=== PATIENT | male | born 1955 | race African-American/Black ===

== ENCOUNTER 2018-09-27 00:44 | Emergency (ER) | payer SELFPAY ==
[2018-09-27 01:11] LABS: Bilirubin Small (Negative); Blood, Urine Small (Negative); Clarity CLOUDY (Clear); Glucose, Urine (Dipstick) Negative (Negative); Leukocyte Trace (Negative); Nitrite Negative (Negative); Protein, Urine (Dipstick) 100 mg/dL (Neg-Trace); Specific Gravity, Urine 1.019 (1.002-1.036)
[2018-09-27 01:12] LABS: Bacteria/HPF None Seen HPF (None Seen); WBC/HPF 21-50 HPF (0-3)
[2018-09-27 01:13] LABS: Pathc Cast-AUWi Flag 5.81 (0-2.49)
[2018-09-27 01:23] LABS: Other Casts/LPF 0-3 FINELY GRAN LPF (0-3 Hyaline); Renal Epithelial None Seen HPF (0-3); Transitional Epithelial NONE SEEN HPF (0-3); Yeast-All Forms None Seen HPF (None Seen)
[2018-09-27 01:26] LABS: Medtox Reader # READER 1; Phencyclidine (PCP) Detected (NotDetected); THC/Cannabinoid Screen Detected (NotDetected)
[2018-09-27 01:27] LABS: Amphetamine Not Detected (NotDetected); Barbiturates Screen Not Detected (NotDetected); Benzodiazepine Screen Not Detected (NotDetected); Cocaine Metabolite Screen Detected (NotDetected); Medtox Control Line Valid? VALID (VALID); Methadone Not Detected (NotDetected); Methamphetamine Not Detected (NotDetected); Opiate Screen Detected (NotDetected); Oxycodone Screen Not Detected (NotDetected); Tricyclic Screen Not Detected (NotDetected)
[2018-09-27 01:35] LABS: #Lymphocytes 1.3 thou/uL (1.20-3.40); #Monocytes 0.3 thou/uL (0.11-0.59); #Neutrophils 2.2 thou/uL (1.40-6.50); %Basophils 0.6 % (0.0-1.0); %Eosinophils 0.5 % (0.0-10.0); %Neutrophils 57.9 % (42.0-75.0); Hemoglobin 10.7 g/dL (14.0-18.0); Mean Corpuscular HGB CONC 30.5 g/dL (32.0-36.0); Mean Corpuscular Hemoglobin 26.2 pg (27.0-31.0); Mean Corpuscular Volume 85.9 fL (78.0-98.0); Mean Platelet Volume 8.7 fL (7.4-10.4); Platelet Count 124 thou/uL (130-400); RBC Distribution Width 11.4 % (11.5-14.5); Red Blood Cell (RBC) Count 4.07 mill/uL (4.70-6.10); White Blood Cell (WBC) Count 3.8 thou/uL (4.8-10.8)
[2018-09-27 01:54] LABS: Acetaminophen Less than 6.0 mcg/mL (10.0-30.0); Alcohol Less than 10 mg/dL (Less than 10); Salicylate Less than 8.0 mg/dL (15.0-30.0)
[2018-09-27 01:56] LABS: ALT (SGPT) 91 U/L (8-55); AST (SGOT) 80 U/L (5-34); Albumin 3.6 g/dL (3.4-4.8); Alkaline Phosphatase 75 U/L (40-150); Anion Gap 13 mmol/L (10-20); BUN (Urea Nitrogen) 19 mg/dL (8.4-25.7); Bilirubin, Total 0.8 mg/dL (0.2-1.2); CK (CPK) 119 U/L (30-200); Calc. Creatinine Clearance 0 mL/min (70-130); Calcium 8.7 mg/dL (7.8-10.44); Carbon Dioxide 23 mmol/L (23-31); Chloride 103 mmol/L (98-107); Estimated GFR-MDRD 58; Globulin 4.2 g/dL (2.4-3.5); Glucose 100 mg/dL (80-115); Magnesium 1.7 mg/dL (1.6-2.6); Potassium 4.5 mmol/L (3.5-5.1); Protein, Total 7.8 g/dL (5.8-8.1); Sodium 134 mmol/L (136-145)
--- NOTE | 2018-09-27 09:36 | CT ---
PRELIMINARY REPORT/[facility]/EMERGENTY AFTER-HOURS PROCEDURE CT Head Without Contrast EXAM DATE/TIME: 09/27/2018 1:03 AM CLINICAL HISTORY: 63 years old, male; Signs and symptoms; Altered mental status/memory loss; Confusion or disorientatio n; Patient HX: M63 presents to the ed via ems for evaluation S/P found unresponsive in car TECHNIQUE: Axial computed tomography images of the head/brain without contrast. COMPARISON: No relevant prior studies available. FINDINGS: Brain: Volume loss and chronic small vessel ischemic change. No brain edema. No intracranial hemorrha ge. Ventricles: Normal. No ventriculomegaly. Bones/joints: Unremarkable. No acute fracture. Sinuses: Visualized sinuses are unremarkable. No acute sinusitis. Mastoid air cells: Visualized mastoid air cells are unremarkable. No mastoid effusion. Soft tissues: Unremarkable. IMPRESSION: No acute brain findings. Thank you for allowing us to participate in the care of your patient. Dictated and Authenticated by: Cyril Gardner MD 09/27/2018 1:14 AM Central Time ([place] & [place]) FINAL REPORT EMERGENT AFTER HOURS CT BRAIN WITHOUT CONTRAST: FINDINGS/IMPRESSION: I agree with the findings and impression given in the preliminary report, per [facility] physician: 1. No evidence of acute intracranial abnormality. 2. Small vessel ischemic disease.
== END 2018-09-27 04:45 | disposition home or self-care (01) ==
LOC: ERS 00:44
DX: F11.10 Opioid abuse, uncomplicated (principal); I10 Essential (primary) hypertension; F17.210 Nicotine dependence, cigarettes, uncomplicated
CPT/HCPCS: 36415; 51701; 70450; 80053; 80306; 80307; 81003; 81015; 82550; 83735; 85025; 87086; 93005

== ENCOUNTER 2021-05-24 10:31 | Inpatient (IN) | payer SELFPAY ==
[2021-05-24] MEDS ORDERED: Morphine 4 MG/ML VIAL ONE (11:11)
[2021-05-24] MEDS ORDERED: Acetaminophen 500 MG TAB ONE (11:11)
[2021-05-24] MEDS ORDERED: Vancomycin 1 GM/200 ML BAG ONE (11:11)
[2021-05-24 11:21] LABS: ALT (SGPT) 89 U/L (8-55); AST (SGOT) 78 U/L (5-34); Alkaline Phosphatase 95 U/L (40-110); Anion Gap 12 mmol/L (10-20); BUN (Urea Nitrogen) 19 mg/dL (8.4-25.7); Bilirubin, Total 0.8 mg/dL (0.2-1.2); Calc. Creatinine Clearance 0 mL/min (70-130); Calcium 9.3 mg/dL (7.8-10.44); Carbon Dioxide 25 mmol/L (23-31); Chloride 103 mmol/L (98-107); Globulin 5.2 g/dL (2.4-3.5); Glucose 102 mg/dL (80-115); Potassium 4.1 mmol/L (3.5-5.1); Protein, Total 9.2 g/dL (5.8-8.1); Sodium 136 mmol/L (136-145)
[2021-05-24 11:27] LABS: Mean Corpuscular HGB CONC 32.3 g/dL (32.0-36.0); Mean Corpuscular Hemoglobin 26.8 pg (27.0-31.0); Platelet Count 157 thou/uL (130-400); RBC Distribution Width 11.7 % (11.5-14.5); Red Blood Cell (RBC) Count 4.84 mill/uL (4.70-6.10); White Blood Cell (WBC) Count 3.5 thou/uL (4.8-10.8)
[2021-05-24 11:28] LABS: Band 2 % (5-11); Eosinophils 3 % (0-10); Lymphocytes 65 % (21-51); MDiff Complete? YES; Monocytes 7 % (0-10); Neutrophil 23 % (42-75)
[2021-05-24] MEDS ORDERED: CEFAZOLIN 2 GM, Admixture Fee 1 EACH in Sodium Chloride 0.9% 100 ML IVPB SCH (11:45)
[2021-05-24] MEDS ORDERED: Nitroglycerin 2% Ointment 1 INCH/1 GM Packet ONE (12:02)
[2021-05-24] MEDS ORDERED: hydrALAZINE 20 MG/ML VIAL ONE (12:02)
[2021-05-24 13:21] LABS: SARS-CoV-2 NAA Rapid Test DETECTED (NotDetected)
[2021-05-24] MEDS ORDERED: Sodium Chloride 0.9% 1,000 ML IV SCH (16:15)
[2021-05-24 17:45] VITALS: BMI 21.5
[2021-05-24] MEDS ORDERED: Piperacillin/Tazobactam 3.375 GM in Sodium Chloride 0.9% 100 ML IVPB SCH (18:00)
[2021-05-24] MEDS ORDERED: hydrALAZINE 25 MG TAB PO PRN (20:27)
[2021-05-24] MEDS ORDERED: cloNIDine 0.1 MG TAB PO PRN (20:27)
[2021-05-24] MEDS ORDERED: Acetaminophen 325 MG TAB PO PRN (20:27)
[2021-05-24] MEDS ORDERED: Ondansetron ODT 4 MG TAB PO PRN (20:27)
[2021-05-24] MEDS ORDERED: Vancomycin 1 GM in Premix Bag 1 BAG IVPB SCH (21:00)
[2021-05-24] MEDS: metroNIDAZOLE 500 MG TAB PO SCH (21:56)
[2021-05-24] MEDS: Cefepime 1 GM in Sodium Chloride 0.9% 100 ML IVPB SCH (21:56)
[2021-05-24] MEDS: HYDROcodone/Acetaminophen 5/325 mg Tablet PO PRN (22:28)
[2021-05-24] MEDS: Vancomycin HCl 750 MG in Sodium Chloride 0.9% 250 ML 250 ML IVPB SCH (23:52)
[2021-05-25] MEDS: HYDROcodone/Acetaminophen 5/325 mg Tablet PO PRN (03:57)
[2021-05-25 08:54] LABS: Anion Gap 13 mmol/L (10-20); BUN (Urea Nitrogen) 18 mg/dL (8.4-25.7); Calc. Creatinine Clearance 69 mL/min (70-130); Calcium 8.6 mg/dL (7.8-10.44); Carbon Dioxide 21 mmol/L (23-31); Chloride 106 mmol/L (98-107); Glucose 88 mg/dL (80-115); Potassium 4.3 mmol/L (3.5-5.1); Sodium 136 mmol/L (136-145)
[2021-05-25 08:58] LABS: Mean Corpuscular HGB CONC 31.8 g/dL (32.0-36.0); Mean Corpuscular Hemoglobin 26.4 pg (27.0-31.0); Mean Corpuscular Volume 82.9 fL (78.0-98.0); Mean Platelet Volume 9.2 fL (7.4-10.4); Platelet Count 141 thou/uL (130-400); RBC Distribution Width 11.5 % (11.5-14.5); Red Blood Cell (RBC) Count 4.15 mill/uL (4.70-6.10); White Blood Cell (WBC) Count 3.5 thou/uL (4.8-10.8)
[2021-05-25 08:59] LABS: Band 5 % (5-11); Eosinophils 4 % (0-10); Lymphocytes 49 % (21-51); MDiff Complete? YES; Monocytes 8 % (0-10); Neutrophil 33 % (42-75)
[2021-05-25] MEDS: Saccharomyces boulardii 250 MG CAP PO SCH (09:24)
[2021-05-25] MEDS: metroNIDAZOLE 500 MG TAB PO SCH ×3 (09:24→21:37)
[2021-05-25] MEDS: Cefepime 1 GM in Sodium Chloride 0.9% 100 ML IVPB SCH ×2 (09:26→21:37)
[2021-05-25] MEDS: Lisinopril 20 MG TAB PO SCH (09:27)
[2021-05-25] MEDS: Vancomycin HCl 750 MG in Sodium Chloride 0.9% 250 ML 250 ML IVPB SCH ×2 (12:02→23:54)
[2021-05-25] MEDS ORDERED: Enoxaparin Sodium 40 MG/0.4 ML SYRINGE SC SCH (21:00)
[2021-05-25 23:51] LABS: Vancomycin, Trough 12.2 ug/mL
[2021-05-26] MEDS: metroNIDAZOLE 500 MG TAB PO SCH ×2 (08:29→16:15)
[2021-05-26] MEDS: Saccharomyces boulardii 250 MG CAP PO SCH (08:30)
[2021-05-26] MEDS: Lisinopril 20 MG TAB PO SCH (08:30)
[2021-05-26] MEDS: Cefepime 1 GM in Sodium Chloride 0.9% 100 ML IVPB SCH (08:30)
[2021-05-26] MEDS ORDERED: Vancomycin 1 GM in Premix Bag 1 BAG IVPB SCH (12:00)
[2021-05-26 16:47] VITALS: BP 120/76; TEMP 98.1
== END 2021-05-26 17:00 | disposition home or self-care (01) | DRG 602 ==
LOC: ERS 10:31 → T4-B 12:51
PROVIDERS: ADMIT Internal Medicine; ATTEND Internal Medicine
PROC: 0HBFXZZ Excision of Right Hand Skin, External Approach (ICD-10-PCS; principal; 2021-05-24)
PROC: 8E0ZXY6 Isolation (ICD-10-PCS; 2021-05-24)
DX: L03.011 Cellulitis of right finger (principal); U07.1 COVID-19; L02.511 Cutaneous abscess of right hand; I10 Essential (primary) hypertension; F17.210 Nicotine dependence, cigarettes, uncomplicated; J45.909 Unspecified asthma, uncomplicated; K74.60 Unspecified cirrhosis of liver; F32.A Depression, unspecified; Z79.899 Other long term (current) drug therapy; Z91.14 Patient's other noncompliance with medication regimen
CPT/HCPCS: 36415; 80048; 80053; 80202; 83605; 85025; 86140; 87040; 87070; 87077; 87205; 93005; 96365; 96366; 96367; 96375; J0360; J0690; J0692; J1650; J2270; J3370; J3490; J7050; U0002

== ENCOUNTER 2021-12-12 09:40 | Outpatient (CLI) | payer MEDICARE, OTHER | END 2021-12-12 09:41 | disposition home or self-care (01) | LOC: BICULT 09:40 | PROVIDERS: ATTEND Physician Assistant Medical | DX: R07.81 Pleurodynia (principal); I10 Essential (primary) hypertension; B18.2 Chronic viral hepatitis C; B18.1 Chronic viral hepatitis B without delta-agent | CPT/HCPCS: 76705 ==

== ENCOUNTER 2022-08-27 06:59 | Outpatient (CLI) | payer OTHER | END 2022-08-27 07:00 | disposition home or self-care (01) | LOC: BICULT 06:59 | PROVIDERS: ATTEND Physician Assistant Medical | DX: B18.1 Chronic viral hepatitis B without delta-agent (principal); B18.2 Chronic viral hepatitis C; D64.9 Anemia, unspecified; K76.9 Liver disease, unspecified; K82.4 Cholesterolosis of gallbladder | CPT/HCPCS: 76705 ==

== ENCOUNTER 2022-09-30 17:51 | Emergency (ER) | payer OTHER ==
[2022-09-30 20:01] LABS: #Basophils 0.1 thou/uL (0.0-0.2); #Eosinphils 0.1 thou/uL (0.0-0.7); #Lymphocytes 4.8 thou/uL (1.20-3.40); #Monocytes 0.5 thou/uL (0.11-0.59); #Neutrophils 4.5 thou/uL (1.40-6.50); %Basophils 0.7 % (0.0-1.0); %Eosinophils 1.1 % (0.0-10.0); %Lymphocytes 48.3 % (21.0-51.0); %Monocytes 4.7 % (0.0-10.0); %Neutrophils 45.1 % (42.0-75.0); Hemoglobin 13.2 g/dL (14.0-18.0); Mean Corpuscular Hemoglobin 26.8 pg (27.0-31.0); Mean Corpuscular Volume 83.5 fl (78.0-98.0); Mean Platelet Volume 8.2 fL (7.4-10.4); Platelet Count 151 10x3/uL (130-400); RBC Distribution Width 11.6 % (11.5-14.5); Red Blood Cell (RBC) Count 4.93 mill/uL (4.70-6.10); White Blood Cell (WBC) Count 9.9 10x3/uL (4.8-10.8)
[2022-09-30] MEDS ORDERED: Prochlorperazine 10 MG/2 ML VIAL ONE (20:01)
[2022-09-30] MEDS ORDERED: diphenhydrAMINE 12.5 MG/5 ML UDCUP ONE (20:01)
[2022-09-30] MEDS ORDERED: diphenhydrAMINE 50 MG/ML VIAL ONE (20:02)
[2022-09-30 20:26] LABS: ALT (SGPT) 25 U/L (8-55); AST (SGOT) 29 U/L (5-34); Albumin 4.7 g/dL (3.4-4.8); Alkaline Phosphatase 93 U/L (40-110); Anion Gap 13 mmol/L (10-20); BUN (Urea Nitrogen) 13 mg/dL (8.4-25.7); Bilirubin, Total 0.6 mg/dL (0.2-1.2); Calc. Creatinine Clearance 0 mL/min (70-130); Calcium 9.8 mg/dL (7.8-10.44); Carbon Dioxide 24 mmol/L (23-31); Chloride 102 mmol/L (98-107); Estimated GFR 65; Globulin 4.9 g/dL (2.4-3.5); Glucose 100 mg/dL (80-115); Potassium 3.7 mmol/L (3.5-5.1); Protein, Total 9.6 g/dL (5.8-8.1); Sodium 135 mmol/L (136-145)
== END 2022-09-30 23:37 | disposition home or self-care (01) ==
LOC: ERS 17:51
DX: I10 Essential (primary) hypertension (principal); J45.909 Unspecified asthma, uncomplicated; F17.210 Nicotine dependence, cigarettes, uncomplicated; Z79.899 Other long term (current) drug therapy
CPT/HCPCS: 36415; 80053; 85025; 93005; 96374; 96375; J0780; J1200; Q0163

== ENCOUNTER 2024-06-27 13:54 | Emergency (ER) | payer OTHER ==
[2024-06-27] MEDS ORDERED: HYDROcodone/Acetaminophen 5/325 mg Tablet ONE (14:27)
== END 2024-06-27 15:06 | disposition home or self-care (01) ==
LOC: ERS 13:54
DX: M79.605 Pain in left leg (principal); I10 Essential (primary) hypertension; J45.909 Unspecified asthma, uncomplicated; F17.210 Nicotine dependence, cigarettes, uncomplicated; Z79.899 Other long term (current) drug therapy
CPT/HCPCS: 99283